=== PATIENT | male | born 1960 | race Caucasian/White ===

== ENCOUNTER → 2017-12-26 | Outpatient (CLI) | payer BC ==
--- NOTE | 2017-12-26 10:48 | XR ---
EXAMINATION TYPE: XR chest 2V DATE OF EXAM: 12/26/2017 COMPARISON: NONE INDICATION: Cough x3 weeks TECHNIQUE: Frontal and lateral views of the chest are obtained. FINDINGS: The heart size is normal. The pulmonary vasculature is normal. The lungs are clear. IMPRESSION: 1. No acute pulmonary process.
== END | disposition home or self-care (01) ==
LOC: RADXRYALE 10:20
PROVIDERS: ATTEND Nurse Practitioner Family
DX: R05 Cough (principal); R53.83 Other fatigue
CPT/HCPCS: 71046

== ENCOUNTER → 2018-02-04 | Outpatient (CLI) | payer BC ==
[2018-02-04 11:02] LABS: C Reactive Protein <5.0 mg/L (<10.0)
--- NOTE | 2018-02-04 13:01 | EST ---
EXERCISE STRESS DATE OF SERVICE: 02/04/2018 AGE: 57 SEX: M HT: 71" WT: 205 PROTOCOL: Jose Alfredo Stress Test STAGE: 4 DURATION OF EXERCISE: 10:00 HEART RATE REST: 65 BLOOD PRESSURE REST: 128/89 MAXIMUM HEART RATE ACHIEVED: 153 MAXIMUM BLOOD PRESSURE: 209/79 85% MPHR: 140 100% MPHR: 165 METS: 10.1 INDICATIONS: Chest discomfort. CLINICAL INFORMATION: STRESS DATA: Pretesting physical examination showed a heart rate of 65, pressure is 128/89 mmHg. Baseline EKG showed sinus mechanism. The patient exercised on the treadmill according to Jose Alfredo protocol for a total of 10 minutes and achieved 10.1 METS with max heart rate was 153, which is about 93% of maximum predicted heart rate. Maximum blood pressure was 209/79 mmHg. Clinically, the patient developed shortness of breath at the peak of the heart rate and the peak of the exercise. The EKG at the peak of the exercise showed about [address]-segment depression. CONCLUSION: 1. Good exercise tolerance. 2. The patient developed shortness of breath at the peak of the exercise. 3. Mildly abnormal EKG in response to exercise. 4. Different kind of stress test is recommended. I would recommend proceeding with a stress test with imaging modality for better clarification. MMODL / IJN: [id number] /
[2018-02-04 16:16] LABS: Rheumatoid Factor 11 IU/mL (0-15)
== END | disposition home or self-care (01) ==
LOC: RADNMMAIN 09:44
PROVIDERS: ATTEND Family Medicine
DX: R06.02 Shortness of breath (principal); I10 Essential (primary) hypertension; E78.5 Hyperlipidemia, unspecified; M25.50 Pain in unspecified joint; R94.31 Abnormal electrocardiogram [ECG] [EKG]; R53.83 Other fatigue; Z82.49 Family history of ischemic heart disease and other diseases of the circulatory system
CPT/HCPCS: 36415; 82306; 84443; 86038; 86140; 86431; 93005; 93017

== ENCOUNTER → 2018-09-10 | Outpatient (CLI) | payer BC ==
--- NOTE | 2018-09-10 14:53 | CONS ---
CONSULTATION DATE OF SERVICE: 09/10/2018 A 58-year-old gentleman who has been evaluated [facility] the [facility] for snoring, awakenings from sleep and tiredness during the day. HISTORY OF PRESENT ILLNESS/SLEEP-WAKE EVALUATION: Patient's usual sleep schedule from 11 p.m. to 6 - 7 a.m. basically 7 days a week. No problem with falling asleep. No TV in bedroom. According to his , he snores. He wakes up from sleep more than 2 times and has 2 episodes of nocturia. 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 [place] Sleepiness Scale is 2. PAST MEDICAL HISTORY: Positive for foramen ovale, hypertension, gout, allergy. PAST SURGICAL HISTORY: Surgery for closing the patent foramen ovale in June 2018, right ankle surgery. MEDICATIONS: Plavix, lisinopril, Colchicine, Singulair, baby aspirin. SOCIAL HISTORY: Positive for smoking for 6 years. Quit 33 years ago. Alcohol consumption rarely. FAMILY HISTORY: Hypertension, arthritis, sinus headaches, snoring, cancer, headaches, thyroid problems. REVIEW OF SYSTEMS: Snoring, awakenings from sleep, feeling tiredness during the day. PHYSICAL EXAM: gentleman without distress, BP 130/76, HR 66, RR 16, height 5 and 10-1/4, weight 210.4, body mass index 29.9, temperature 98.0, oxygen saturation at room air 98%. OROPHARYNX: Moderately low position of soft palate. Restriction of nasal breathing, wide neck 17 inches in circumference. ABDOMEN: Slightly obese. Neck Supple, no JVD. Thyroid is not palpable. LUNGS Clear to percussion and to auscultation. Good air exchange. No wheezing or rhonchi. HEART S1, S2 regular. No murmurs, gallops, or rubs. EXTREMITIES No clubbing or cyanosis. CHAMPION OF SUSTAINABLE DESIGN Awake, alert, and oriented X3. Cranial nerves 2 to 7 intact. There is no fasciculation or atrophy. noted. No focal deficits observed. IMPRESSION: 1. Snoring, awakenings from sleep with nocturia, low position of soft palate, restriction of nasal breathing, wide neck, possible obstructive sleep apnea- hypopnea syndrome. 2. Overweight, borderline to obesity, body mass index 29.9. 3. Hypertension. 4. Status post recent surgery for closing patent foramen ovale. 5. Gout. 6. Hypertension. 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 8. Allergy. 9. Status post right ankle surgery. PLAN: 1. Polysomnography for evaluation of patient's breathing during sleep. 2. CPAP/BiPAP titration if sleep study confirms obstructive sleep apnea-hypopnea syndrome. 3. Preferable position during sleep on the side. 4. No driving if patient feels any sleepiness. 5. I will see patient for follow up visit to explain results of testing and following plan. Thank you very much for referring this patient for consultation. Sincerely, Jeremie Carr MD, PhD, FAASM Diplomat of [place] [employer] [place] [employer] [facility] [place] Jeremie Carr MD, PhD, FAASM Diplomat of [place] [employer] [place] [employer] [facility] [place] MMLANAL / KATIE: [id number] /
== END ==
LOC: SLEEP 13:51
PROVIDERS: ATTEND Internal Medicine
DX: R06.83 Snoring (principal); E66.3 Overweight; I10 Essential (primary) hypertension; M10.9 Gout, unspecified; T78.40XA Allergy, unspecified, initial encounter; Z98.890 Other specified postprocedural states; Z68.29 Body mass index [BMI] 29.0-29.9, adult; Z99.89 Dependence on other enabling machines and devices; Z79.899 Other long term (current) drug therapy; Z79.82 Long term (current) use of aspirin; Z87.891 Personal history of nicotine dependence
CPT/HCPCS: 99211

== ENCOUNTER 2018-09-21 15:12 | Inpatient (IN) | payer BC ==
[2018-09-21 16:18] LABS: Basophils % (A) 0 %; Eosinophils # (A) 0.2 k/uL (0-0.7); Eosinophils % (A) 2 %; HCT 47.9 % (39.0-53.0); HGB 16.1 gm/dL (13.0-17.5); Lymphocytes # (A) 1.9 k/uL (1.0-4.8); Lymphocytes % (A) 26 %; MCH 28.6 pg (25.0-35.0); MCHC 33.6 g/dL (31.0-37.0); MCV 85.2 fL (80.0-100.0); Mean Platelet Volume 6.8; Monocytes # (A) 0.5 k/uL (0-1.0); Monocytes % (A) 6 %; Neutrophils # (A) 4.5 k/uL (1.3-7.7); Neutrophils % (A) 62 %; Platelet Count 279 k/uL (150-450); RBC 5.63 m/uL (4.30-5.90); RDW 12.9 % (11.5-15.5); WBC 7.3 k/uL (3.8-10.6)
[2018-09-21 16:24] LABS: Partial Thromboplastin Time 25.2 sec (22.0-30.0); Prothrombin Time 10.4 sec (9.0-12.0)
[2018-09-21 16:30] LABS: Creatine Kinase 176 U/L (55-170)
[2018-09-21 16:31] LABS: Potassium 3.6 mmol/L (3.5-5.1)
[2018-09-21 16:32] LABS: ALT 36 U/L (21-72); AST 34 U/L (17-59); Albumin 4.3 g/dL (3.5-5.0); Alkaline Phosphatase 70 U/L (38-126); Anion Gap 11 mmol/L; Blood Urea Nitrogen 9 mg/dL (9-20); Calcium 9.1 mg/dL (8.4-10.2); Carbon Dioxide 27 mmol/L (22-30); Chloride 98 mmol/L (98-107); Glucose 145 mg/dL (74-99); Magnesium 1.8 mg/dL (1.6-2.3); Sodium 136 mmol/L (137-145); Total Bilirubin 0.5 mg/dL (0.2-1.3); Total Protein 6.9 g/dL (6.3-8.2)
[2018-09-21 16:43] LABS: Creatine Kinase MB 0.7 ng/mL (0.0-2.4); Troponin I <0.012 ng/mL (0.000-0.034)
--- NOTE | 2018-09-21 16:58 | XR ---
EXAMINATION TYPE: XR chest 2V DATE OF EXAM: 09/21/2018 COMPARISON: Chest x-ray December 26, 2017. HISTORY: Intermittent episodes of dysrhythmia. TECHNIQUE: Frontal and lateral views of the chest are obtained. FINDINGS: Overlying EKG leads are noted on current study. There is no focal air space opacity, pleura l effusion, or pneumothorax seen. The cardiac silhouette size is within normal limits. There is new cardiac closure device seen best on lateral view possibly from ASD repair. The osseous structures ar e intact. IMPRESSION: No acute cardiopulmonary process. Postsurgical change to heart new from prior study.
[2018-09-21] MEDS ORDERED: HEPARIN SODIUM,PORCINE 5,000 UNIT/ML 1 ML VIAL IV ONE (18:17)
[2018-09-21] MEDS ORDERED: HEPARIN SODIUM,PORCINE 5,000 UNIT/ML 1 ML VIAL IV PRN (18:17)
--- NOTE | 2018-09-21 18:18 | ED ---
General Adult HPI <Ryan Bustos - Last Filed: 09/21/18 18:51> - General Source: family, RN notes reviewed, old records reviewed Mode of arrival: ambulatory Limitations: no limitations <Benedicto Sena - Last Filed: 09/21/18 23:38> - General Chief complaint: Arrhythmia/Palpitations Stated complaint: arrhythmia - History of Present Illness Initial comments: 58-year-old male patient past medical history of PFO closure on 07/02 and hypertension presents to ED with heart palpitations. Patient states that the heart palpitations began approximately 2 PM today. Patient states that he has had heart palpitations in the past, has follow-up with route sales delivery drivers supervisor Dr. Barbour but has not had any arrhythmia diagnosed. Patient reports that he had plans to wear a Holter monitor and future. Patient states that he feels as if his heart is irregular currently and at times he felt as if it was beating fast. Patient denies any other symptoms. Patient denies shortness of breath, chest pain, acuity, presyncope, headache, changes in vision, weakness extremities, focal deficit, difficulty with speech, abdominal pain, nausea vomiting diarrhea. Systemic: Pt denies fatigue, myalgia, fever/chills, rash. Pt denies weakness, night sweats, weight loss. Neuro: Pt denies headache, visual disturbances, syncope or pre-syncope. HEENT: Pt denies ocular discharge or irritation, otalgia, rhinorrhea, pharyngitis or notable lymphadenopathy. Cardiopulmonary: Pt denies chest pain, SOB, dyspnea on exertion. Abdominal/GI: Pt denies abdominal pain, n/v/d. : Pt denies dysuria, burning w/ urination, frequency/urgency. Denies new onset urinary or bowel incontinence. MSK: Pt denies myalgia, loss of strength or function in extremities. Neuro: Pt denies new onset weakness, paresthesias. (Benedicto Sena) - Related Data Home Medications Medication Instructions Recorded Confirmed Aspirin [Volo Aspirin EC] 81 mg PO DAILY 09/21/18 09/21/18 Calcium Polycarbophil [Fibercon] 625 mg PO DAILY 09/21/18 09/21/18 Clopidogrel [Plavix] 75 mg PO DAILY 09/21/18 09/21/18 Colchicine 0.6 mg PO DAILY PRN 09/21/18 09/21/18 Lisinopril-Hctz 20-12.5 mg 1 tab PO DAILY 09/21/18 09/21/18 [Zestoretic 20-12.5] Montelukast [Singulair] 10 mg PO HS 09/21/18 09/21/18 Allergies Allergy/AdvReac Type Severity Reaction Status Date / Time naproxen AdvReac Dyspnea Verified 09/21/18 16:36 Review of Systems ROS Other: All systems not noted in ROS Statement are negative. <Ryan Bustos - Last Filed: 09/21/18 18:51> ROS Other: All systems not noted in ROS Statement are negative. <Benedicto Sena - Last Filed: 09/21/18 23:38> ROS Statement: Those systems with pertinent positive or pertinent negative responses have been documented in the HPI. Past Medical History Past Medical History: Hypertension Additional Past Medical History / Comment(s): PFO History of Any Multi-Drug Resistant Organisms: None Reported Past Surgical History: Orthopedic Surgery Past Psychological History: No Psychological Hx Reported Smoking Status: Never smoker Past Alcohol Use History: None Reported Past Drug Use History: None Reported <Benedicto Sena - Last Filed: 09/21/18 23:38> General Exam <Ryan Bustos - Last Filed: 09/21/18 18:51> Limitations: no limitations <Benedicto Sena - Last Filed: 09/21/18 23:38> - General Exam Comments Initial Comments: Constitutional: NAD, AOX3, Pt has pleasant affect. HEENT: NC/AT, trachea midline, neck supple, no lymphadenopathy. Posterior pharynx non erythematous, without exudates. External ears appear normal, without discharge. Mucous membranes moist. Eyes PERRLA, EOM intact. There is no scleral icterus. No pallor noted. Cardiopulmonary: Heart rate irregularly irregular, rate 80bpm during physical exam, no murmurs, rubs or gallops, no JVD noted. Lungs CTAB in anterior and posterior grier. No peripheral edema. Abdominal exam: Abdomen soft and non-distended. Abdomen non-tender to palpation in all 4 quadrants. Bowel sounds active in LLQ. No hepatosplenomegaly. No ecchymosis Neuro: CN II-XII intact. No nuchal rigidity. No focal deficit, no facial droop. MSK: No posterior calf tenderness bilaterally, homans sign negative bilaterally. Posterior tibialis and radial pulse +2 bilaterally. Sensation intact in upper and lower extremities. Full active ROM in upper and lower extremities, 5/5 strength. (Benedicto Sena) Course <Ryan Bustos - Last Filed: 09/21/18 18:51> <Benedicto Sena - Last Filed: 09/21/18 23:38> Vital Signs 09/21/18 09/21/18 09/21/18 15:24 18:50 19:47 Temperature 98.2 F Pulse Rate 142 H 98 103 H Respiratory 18 12 20 Rate Blood Pressure 167/124 153/92 127/78 O2 Sat by Pulse 97 97 98 Oximetry 09/21/18 09/21/18 09/21/18 20:00 21:00 22:00 Temperature Pulse Rate 94 81 83 Respiratory 20 20 20 Rate Blood Pressure 134/97 119/63 100/57 O2 Sat by Pulse 97 98 97 Oximetry 09/21/18 23:00 Temperature Pulse Rate 68 Respiratory 20 Rate Blood Pressure 113/75 O2 Sat by Pulse 98 Oximetry - Reevaluation(s) Reevaluation #1: 09/21/18 18:51 Patient reexamined and reevaluated by myself, Dr. Bustos. Patient is resting comfortably in bed. Heart rate 90. Rhythm is irregular. EKG shows atrial fibrillation which is new for patient. Case was discussed in detail with Dr. Valdes, covering for Dr. Montoya, who will admit. Card ALLERGY will be consult. Patient will be placed on Cardizem to attempt cardioversion pharmaceutically. Patient will also be started on heparin. Patient and are updated on results and plan. I did review and agree with PA findings. This includes all diagnostic interpretations and treatment plan. (Ryan Bustos) Medical Decision Making - Lab Data Result diagrams: 09/21/18 15:53 09/21/18 15:53 <Ryan Bustos - Last Filed: 09/21/18 18:51> - Lab Data Result diagrams: 09/21/18 15:53 09/21/18 15:53 - EKG Data -: EKG Interpreted by Me (and dr bustos ) <Benedicto Sena - Last Filed: 09/21/18 23:38> - Medical Decision Making 58-year-old male patient past medical history of PFO closure on 07/02 and hypertension presents to ED with heart palpitations. Patient states that the heart palpitations began approximately 2 PM today. Patient states that he has had heart palpitations in the past, has follow-up with route sales delivery drivers supervisor Dr. Barbour but has not had any arrhythmia diagnosed. Patient denies any other symptoms. Patient denies shortness of breath, chest pain, acuity, presyncope, headache, changes in vision, weakness extremities, focal deficit, difficulty with speech, abdominal pain, nausea vomiting diarrhea. Physical exam displayed:Heart rate irregularly irregular, rate 80bpm during physical exam, no murmurs, rubs or gallops, no JVD noted. Lungs CTAB in anterior and posterior grier. No peripheral edema. Laboratory investigations revealed CBC, CMP within normal limits. Correlation studies the normal limits. Troponin negative, CK-MB within normal limits. Creatine kinase slightly elevated at 76. TSH within normal limits. Magnesium within normal limits. Glucose slightly elevated 145. EKG displayed atrial fibrillation with rapid ventricular response, ventricular rate 108. Second EKG displayed atrial fibrillation, ventricular rate of 87. Patient started on low intensity heparin, cardizem drip. patient admitted to Dr. Valdes, cardiology consulted. Pt discussed in depth with Dr. Bustos. (Benedicto Sena) - Lab Data Lab Results 09/21/18 09/21/18 09/21/18 Range/Units 15:53 15:53 15:53 WBC 7.3 (3.8-10.6) k/uL RBC 5.63 (4.30-5.90) m/uL Hgb 16.1 (13.0-17.5) gm/dL Hct 47.9 (39.0-53.0) % MCV 85.2 (80.0-100.0) fL MCH 28.6 (25.0-35.0) pg MCHC 33.6 (31.0-37.0) g/dL RDW 12.9 (11.5-15.5) % Plt Count 279 (150-450) k/uL Neutrophils % 62 % Lymphocytes % 26 % Monocytes % 6 % Eosinophils % 2 % Basophils % 0 % Neutrophils # 4.5 (1.3-7.7) k/uL Lymphocytes # 1.9 (1.0-4.8) k/uL Monocytes # 0.5 (0-1.0) k/uL Eosinophils # 0.2 (0-0.7) k/uL Basophils # 0.0 (0-0.2) k/uL PT (9.0-12.0) sec INR (<1.2) APTT (22.0-30.0) sec Sodium 136 L (137-145) mmol/L Potassium 3.6 (3.5-5.1) mmol/L Chloride 98 (98-107) mmol/L Carbon Dioxide 27 (22-30) mmol/L Anion Gap 11 mmol/L BUN 9 (9-20) mg/dL Creatinine 0.87 (0.66-1.25) mg/dL Est GFR (CKD-EPI)AfAm >90 (>60 ml/min/1.73 sqM) Est GFR (CKD-EPI)NonAf >90 (>60 ml/min/1.73 sqM) Glucose 145 H (74-99) mg/dL Calcium 9.1 (8.4-10.2) mg/dL Magnesium 1.8 (1.6-2.3) mg/dL Total Bilirubin 0.5 (0.2-1.3) mg/dL AST 34 (17-59) U/L ALT 36 (21-72) U/L Alkaline Phosphatase 70 (38-126) U/L Total Creatine Kinase 176 H (55-170) U/L CK-MB (CK-2) 0.7 (0.0-2.4) ng/mL CK-MB (CK-2) Rel Index 0.4 Troponin I <0.012 (0.000-0.034) ng/mL Total Protein 6.9 (6.3-8.2) g/dL Albumin 4.3 (3.5-5.0) g/dL TSH 1.300 (0.465-4.680) mIU/L 09/21/18 Range/Units 15:53 WBC (3.8-10.6) k/uL RBC (4.30-5.90) m/uL Hgb (13.0-17.5) gm/dL Hct (39.0-53.0) % MCV (80.0-100.0) fL MCH (25.0-35.0) pg MCHC (31.0-37.0) g/dL RDW (11.5-15.5) % Plt Count (150-450) k/uL Neutrophils % % Lymphocytes % % Monocytes % % Eosinophils % % Basophils % % Neutrophils # (1.3-7.7) k/uL Lymphocytes # (1.0-4.8) k/uL Monocytes # (0-1.0) k/uL Eosinophils # (0-0.7) k/uL Basophils # (0-0.2) k/uL PT 10.4 (9.0-12.0) sec INR 1.0 (<1.2) APTT 25.2 (22.0-30.0) sec Sodium (137-145) mmol/L Potassium (3.5-5.1) mmol/L Chloride (98-107) mmol/L Carbon Dioxide (22-30) mmol/L Anion Gap mmol/L BUN (9-20) mg/dL Creatinine (0.66-1.25) mg/dL Est GFR (CKD-EPI)AfAm (>60 ml/min/1.73 sqM) Est GFR (CKD-EPI)NonAf (>60 ml/min/1.73 sqM) Glucose (74-99) mg/dL Calcium (8.4-10.2) mg/dL Magnesium (1.6-2.3) mg/dL Total Bilirubin (0.2-1.3) mg/dL AST (17-59) U/L ALT (21-72) U/L Alkaline Phosphatase (38-126) U/L Total Creatine Kinase (55-170) U/L CK-MB (CK-2) (0.0-2.4) ng/mL CK-MB (CK-2) Rel Index Troponin I (0.000-0.034) ng/mL Total Protein (6.3-8.2) g/dL Albumin (3.5-5.0) g/dL TSH (0.465-4.680) mIU/L - EKG Data EKG Comments: 1) ventricular 108, QRS was 6, QT/QTC 342/450. Patient fibrillation rapid ventricular response. Nonspecific ST abnormality. Abnormal ECG. 2) ventricular rate 87, QRS 90, QT/QTC 344/413. After fibrillation, abnormal EKG. (Benedicto Sena) Disposition <Bustos,Ryan - Last Filed: 09/21/18 18:51> Is patient prescribed a controlled substance at d/c from ED?: No <Benedicto Sena - Last Filed: 09/21/18 23:38> Clinical Impression: Atrial fibrillation with RVR Disposition: ADMITTED IP TO THIS HOSP Condition: Fair
[2018-09-21] MEDS ORDERED: HEPARIN SOD,PORK IN 0.45% NACL 25,000 UNIT in 0.45% NACL 1 250ML.BAG IV SCH (18:30)
[2018-09-21] MEDS: DILTIAZEM 50 MG in SODIUM CHLORIDE 0.9% 40 ML IV SCH (19:11)
[2018-09-21] MEDS ORDERED: ACETAMINOPHEN TAB 325 MG TAB PO PRN (19:23)
[2018-09-21] MEDS ORDERED: NALOXONE 0.4 MG/ML 1 ML VIAL IV PRN (19:23)
[2018-09-21] MEDS ORDERED: SODIUM CHLORIDE 0.9% 1,000 ML IV SCH (19:30)
[2018-09-22] MEDS ORDERED: COLCHICINE 0.6 MG EACH PO PRN (00:10)
[2018-09-22] MEDS ORDERED: MONTELUKAST 10 MG TAB PO SCH (00:15)
[2018-09-22 08:37] LABS: Basophils # (A) 0.1 k/uL (0-0.2); Basophils % (A) 1 %; Eosinophils # (A) 0.2 k/uL (0-0.7); Eosinophils % (A) 3 %; HCT 47.4 % (39.0-53.0); HGB 16.1 gm/dL (13.0-17.5); Lymphocytes # (A) 1.9 k/uL (1.0-4.8); Lymphocytes % (A) 31 %; MCH 29.4 pg (25.0-35.0); MCHC 33.9 g/dL (31.0-37.0); MCV 86.8 fL (80.0-100.0); Mean Platelet Volume 6.9; Monocytes # (A) 0.4 k/uL (0-1.0); Monocytes % (A) 7 %; Neutrophils # (A) 3.4 k/uL (1.3-7.7); Neutrophils % (A) 56 %; Platelet Count 269 k/uL (150-450); RBC 5.47 m/uL (4.30-5.90); RDW 13.2 % (11.5-15.5); WBC 6.2 k/uL (3.8-10.6)
[2018-09-22] MEDS ORDERED: ASPIRIN 81 MG PO SCH (09:00)
[2018-09-22] MEDS ORDERED: LISINOPRIL-HCTZ 20-12.5 MG 1 EACH TAB PO SCH (09:00)
[2018-09-22] MEDS ORDERED: CALCIUM POLYCARBOPHIL 625 MG TAB PO SCH (09:00)
[2018-09-22] MEDS ORDERED: CLOPIDOGREL 75 MG TAB PO SCH (09:00)
--- NOTE | 2018-09-22 11:05 | CONS ---
CONSULTATION CHIEF COMPLAINT: New onset atrial fibrillation. This is a 58-year-old gentleman with history of PFO status post closure, hypertension, who presented to the hospital with symptoms of palpitations. Patient had been having on and off episodes of palpitations, was supposed to have outpatient workup including event monitor and echocardiogram through his primary instrument repairer steam plant in [place]. As he had sustained palpitations yesterday, he called the instrument repairer steam plant's office, who told him to come to our ER where he was found to be in atrial fibrillation. He was started on IV Cardizem following which he converted to sinus rhythm. His symptoms. His predominant symptom is palpitations at rest on and off, unrelated to exertion was with diaphoresis at the time of my evaluation this morning. He time sinus rhythm and is free of symptoms. PAST MEDICAL HISTORY: Significant for hypertension and PFO status post closure. CURRENT MEDICATIONS: Include Plavix 75 daily, colchicine, Zestoretic, and Singulair. The patient is allergic NAPROXEN. FAMILY HISTORY: Negative for premature coronary artery disease. SOCIAL HISTORY: Negative for smoking, EtOH abuse, or drug abuse. REVIEW OF SYSTEMS: HEENT is unremarkable. CARDIAC: As described above. RESPIRATORY: Negative. GI; Negative. GENITOURINARY: Negative. ALLERGY/IMMUNOLOGY: Negative. MUSCULOSKELETAL: Negative. ENDOCRINE: Negative. DERMATOLOGICAL: Negative. CONSTITUTIONAL: Negative. ONCOLOGICAL: Negative. The rest of the system review is not relevant. PHYSICAL EXAM: Patient is comfortable at rest. Vital signs are stable. There is no jugular venous distention. Carotid upstroke is normal. There is no bruit. Chest exam reveals good air entry bilaterally. Heart exam reveals first and second heart sounds. No gallop. No murmur. No rub. Abdomen is soft, nontender. Exam of extremities did not reveal edema. Peripheral pulses are felt INSTRUCTOR CREELER exam did not reveal focal neurological deficits. LABS: Show a hemoglobin of 16, potassium is 3.6, creatinine is 0.8. Troponin is negative. TSH is normal at 1.3. ASSESSMENT: Paroxysmal atrial fibrillation #2 PFO status post closure. PLAN: I will obtain a 2D echo on him today. The patient is on heparin and if he is covered for novel anticoagulants, we are going to start him on one of those. Will discharge him and arrange outpatient followup with his primary instrument repairer steam plant. MMODL / IJN: [id number] /
[2018-09-22] MEDS: DILTIAZEM 50 MG in SODIUM CHLORIDE 0.9% 40 ML IV SCH (11:34)
[2018-09-22 11:39] VITALS: BP 135/86; RESP 17; TEMP 97.7
--- NOTE | 2018-09-22 12:59 | ECHOF ---
Referral Reason:A fib MEASUREMENTS -------- HEIGHT: 180.3 cm WEIGHT: 90.7 kg BP: 118/78 IVSd: 1.2 cm (0.6 - 1.1) LVIDd: 3.7 cm (3.9 - 5.3) LVPWd: 1.1 cm (0.6 - 1.1) IVSs: 1.3 cm LVIDs: 2.1 cm LVPWs: 1.3 cm LA Diam: 4.1 cm (2.7 - 3.8) LAESV Index (A-L): 31.00 ml/m Ao Diam: 3.0 cm (2.0 - 3.7) AV Cusp: 2.0 cm (1.5 - 2.6) LA Diam: 4.3 cm (2.7 - 3.8) EPSS: 0.8 cm MV E Ant: 0.66 m/s MV DecT: 249 ms MV A Ant: 0.45 m/s MV E/A Ratio: 1.45 RAP: 5.00 mmHg RVSP: 18.03 mmHg MV EF SLOPE: 120.72 mm/s (70 - 150) MV EXCURSION: 1.93 cm (> 18.000) FINDINGS -------- Sinus rhythm. This was a technically adequate study. The left ventricular size is normal. There is mild concentric left ventricular hypertrophy. Overa ll left ventricular systolic function is normal with, an EF between 55 - 60 %. The right ventricle is normal in size and function. LA is midly dilated 29-33ml/m2. The right atrium is normal in size. Contrast study was performed with 2 iv injections of 8 ccs of agitated normal saline, at rest, and po st-Valsalva. Right to left atrial shunt visualized via agitatated saline study with valsalva maneuver. There is an interatrial closure device in place with evidence of shunt documented by bubble study in clip 52. Aortic valve is trileaflet and is mildly thickened. There is no evidence of aortic regurgitation. There is no evidence of aortic stenosis. The mitral valve leaflets are mildly thickened. There is trace to mild mitral regurgitation. Trace tricuspid regurgitation present. Right ventricular systolic pressure is normal at < 35 mmHg. There is no evidence of pulmonary hypertension. Trace/mild (physiologic) pulmonic regurgitation. The aortic root size is normal. Normal inferior vena cava with normal inspiratory collapse consistent with estimated right atrial pre ssure of 5 mmHg. There is no pericardial effusion. CONCLUSIONS -------- 1. Sinus rhythm. 2. This was a technically adequate study. 3. The left ventricular size is normal. 4. There is mild concentric left ventricular hypertrophy. 5. Overall left ventricular systolic function is normal with, an EF between 55 - 60 %. 6. LA is midly dilated 29-33ml/m2. 7. Contrast study was performed with 2 iv injections of 8 ccs of agitated normal saline, at rest, and post-Valsalva. 8. Right to left atrial shunt visualized via agitatated saline study with valsalva maneuver. 9. There is an interatrial closure device in place with evidence of shunt. 10. Aortic valve is trileaflet and is mildly thickened. 11. The mitral valve leaflets are mildly thickened. 12. There is trace to mild mitral regurgitation. 13. Trace tricuspid regurgitation present. 14. Right ventricular systolic pressure is normal at < 35 mmHg. 15. There is no evidence of pulmonary hypertension. 16. Trace/mild (physiologic) pulmonic regurgitation. 17. The aortic root size is normal. 18. There is no pericardial effusion. OSTEOPATHIC NEUROLOGIST: Dixon Silverman RDCS
[2018-09-22] MEDS ORDERED: APIXABAN 5 MG TAB PO SCH ×2 (13:00)
[2018-09-22 15:02] VITALS: PULSE 68
--- NOTE | 2018-09-22 16:09 | HP ---
HISTORY AND PHYSICAL DATE OF ADMISSION: 09/21/2018 DATE OF SERVICE: 09/22/2018 PRESENTING COMPLAINT: Heart racing. HISTORY OF PRESENTING COMPLAINT: This is a very pleasant 58-year-old patient who follows with Dr. Montoya, his family doctor. The patient's respiratory therapy technician is Dr. Wylie. Patient did undergo PFO closure in June 2018 at [facility]. Patient's other chronic stable medical conditions include hypertension and gout, for which he takes colchicine p.r.n. The patient around [facility] had his first episode of palpitations and has had 4 or 5 episodes. The patient does have a Fitbit and heart rate has ranged from 120 to 140s. The patient did see his respiratory therapy technician earlier in the month and was supposed to get his event monitor in the mail, but that never came through. He had an episode yesterday when again he started having his heart racing, felt a bit dizzy, lightheaded, and decided to come in. The patient was found to be in atrial fibrillation with rapid ventricular rate and was put on IV Cardizem. The patient was also started on IV heparin. Patient was then admitted for the same. Cardiology was consulted. Patient's is present. REVIEW OF SYSTEMS: CONSTITUTIONAL: None. HEENT: None. RESPIRATORY: None. CARDIOVASCULAR: As above. GASTROINTESTINAL: None. GENITOURINARY: None. MUSCULOSKELETAL: None. DERMATOLOGICAL: None. HEMATOLOGICAL: None. LYMPHATICS: None. PSYCHIATRY: None. NEUROLOGICAL: None. PAST MEDICAL HISTORY: Hypertension, gout. PAST SURGICAL HISTORY: PFO closure in June 2018 at [facility]. SOCIAL HISTORY: Patient smoked maybe for 6 to 8 years about 35 years ago. Drinks alcohol occasionally. . 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 FAMILY HISTORY: Coronary artery bypass and high blood pressure. HOME MEDICATIONS: 1. Singulair 10 mg at bedtime. 2. Zestoretic 20/12.5 one tablet p.o. daily. 3. Colchicine 0.6 mg daily p.r.n. 4. Plavix 75 mg p.o. daily. 5. FiberCon 625 mg p.o. daily. 6. Aspirin 81 mg p.o. daily. 7. Eliquis 5 mg p.o. b.i.d. ALLERGIES: NAPROXEN. PHYSICAL EXAMINATION: VITAL SIGNS ON PRESENTATION: Temperature 98.2, pulse 142, respiration 18, blood pressure 167/124, pulse ox 97% on room air. Repeat blood pressure was down to 134/97. GENERAL APPEARANCE: Average build, lying in bed, comfortable. EYES: Pupils equal. Conjunctivae normal. HEENT: External appearance of nose and ears normal. Oral cavity normal. NECK: JVD not raised. Mass not palpable. RESPIRATORY: Effort normal. LUNGS: Fair air entry. CARDIOVASCULAR: First and second sounds normal. No edema. ABDOMEN: Soft, non-tender. Liver and spleen not palpable. LYMPHATIC: No lymph node palpable in neck or axillae. PSYCHIATRY: Alert and oriented x3. Mood and affect normal. NEUROLOGICAL: Pupils equal. Cranial nerves grossly intact. Power and sensation grossly intact. INVESTIGATIONS: White count 6.2, hemoglobin 16.1, potassium 3.6. BUN and creatinine are normal. Troponin less than 0.012. TSH is normal. Two-D echo shows ejection fraction of 55% to 60% and shows the closure device in place. EKG tracing personally reviewed by me shows atrial flutter with a rate of 108 initially. Chest x-ray film personally reviewed by me shows lung grier to be cleared. ASSESSMENT: 1. Paroxysmal atrial flutter/fibrillation with a rapid ventricular rate. Patient has had a few episodes of these in the last few weeks. 2. History of patent foramen ovale closure. 3. Essential hypertension. 4. Chronic gout, controlled. 5. IV heparin monitoring. 6. IV Cardizem drip. PLAN: Patient was put on IV Cardizem drip and IV heparin initially. Patient did convert to sinus rhythm. Home medications are resumed. Patient was seen by Cardiology, Dr. Armani Cortes. Patient will be started on Eliquis. Care was discussed with the patient and his . Questions were answered. MMODL / IJN: [id number] /
--- NOTE | 2018-09-23 09:34 | CDI ---
Documentation Clarification Form Date: 09/23/18 From: Corin Brando Trudi Denise, Stud Sheep Farmer Hours-8:30 am & 5 pm M-F Admit Date: 09/21/2018 6:14:00 PM Patient Name: Abhi Castillo Visit Number: [id number] Discharge Date: 09/22/2018 4:18:00 PM ATTENTION: The Clinical Documentation Specialists (CDI) and [facility] Coding Staff appreciate your assistance in clarifying documentation. Please respond to the clarification below the line at the bottom and electronically sign. The CDI & [facility] Coding staff will review the response and follow-up if needed. Please note: Queries are made part of the Legal Health Record. If you have any questions, please contact the author of this message via ITS. Dr. Reuben Cortes Atrial Flutter is documented in the H&P. History/Risk factors: S/P PFO closure, gout, HTN Clinical Indicators: developed fast irregular heart rate EKG/telemetry: atrial flutter with a rate of 108 intially Treatment: IV Cardizem drip and IV Heparin then dc on Eliquis In your professional opinion, in order to capture the severity of condition; can you please clarify the type of Atrial Flutter if known? Typical/Type I Atypical/Type II Other, please specify Unable to determine MTDD
--- NOTE | 2018-09-24 01:18 | DS ---
DISCHARGE SUMMARY DATE OF ADMISSION: September 21, 2018. DATE OF DISCHARGE: September 22, 2018. FINAL DIAGNOSES: 1. Paroxysmal atrial flutter fibrillation rapid ventricular rate, now back in sinus rhythm. 2. History of patent foramen ovale closure. 3. Essential hypertension. 4. Chronic gout, controlled. 5. IV heparin monitoring. HOSPITAL COURSE: This patient had a patent foramen ovale closure in June of 2018 at [facility]. Since then, has had a few episodes of palpitation, symptomatic, presented with a heart rate of 120 to 140s, symptomatic, was initially on IV Cardizem and Eliquis. The patient went back into sinus rhythm, started on Eliquis per Cardiology. I did discuss with Dr. Cortes. The patient's aspirin can be discontinued. He will continue on the Plavix and Eliquis daily. Follows with his director advertising. I did discuss with him starting on a beta randall, which he is going to discuss with his director advertising that he is going to see in the next 2 days. The patient did have a 2-D echocardiogram showed EF of 55-60 percent. There was [id number] atrial shunt visualized via agitated saline study with Valsalva maneuver and intra-atrial closure device in place with evidence of shunt. PHYSICAL EXAMINATION: Temperature 97, pulse 64, respiration 17, blood pressure 132/86. CARDIOVASCULAR: Heart sounds irregular. LABS: TSH is normal. Troponin negative. CONSULTATION: Dr. Armani Cortes from Cardiology. DISCHARGE MEDICATIONS: 1. FiberCon 625 mg p.o. daily. 2. Plavix 75 mg p.o. daily. 3. Colchicine 0.6 mg p.o. daily p.r.n. 4. Zestoretic 03/09.5 one tab p.o. daily. 5. Singulair 10 mg q.h.s. 6. Eliquis 5 mg p.o. b.i.d. 7. Aspirin discontinued. FOLLOWUP: Follow up with Dr. Montoya in 1 week. Follow up with Dr. Wylie on September 24, 2018. Copy to Dr. Montoya. MMLANAL / RESHMAN: [id number] /
--- NOTE | 2018-09-24 07:22 | CDI ---
Documentation Clarification Form Date: 09/24/2018 From: Corin Brando Trudi Denise, Fire Alarm Dispatcher Hours-8:30 am & 5 pm M-F Admit Date: 09/21/2018 6:14:00 PM Patient Name: Abhi Castillo Visit Number: [id number] Discharge Date: 09/22/2018 4:18:00 PM ATTENTION: The Clinical Documentation Specialists (CDI) and [facility] Coding Staff appreciate your assistance in clarifying documentation. Please respond to the clarification below the line at the bottom and electronically sign. The CDI & [facility] Coding staff will review the response and follow-up if needed. Please note: Queries are made part of the Legal Health Record. If you have any questions, please contact the author of this message via ITS. Dr. Reuben Cortes Atrial Flutter is documented in the H&P. History/Risk factors: S/P PFO closure, gout, HTN Clinical Indicators: developed fast irregular heart rate EKG/telemetry: atrial flutter with a rate of 108 intially Treatment: IV Cardizem drip and IV Heparin then dc on Eliquis In your professional opinion, in order to capture the severity of condition; can you please clarify the type of Atrial Flutter if known? Typical/Type I Atypical/Type II Other, please specify Unable to determine atypical type 2 MTDD
== END 2018-09-22 16:18 | disposition home or self-care (01) | DRG 310 ==
LOC: EC 15:12 → 3SCARD 18:14
PROVIDERS: ADMIT Hospitalist; ATTEND Hospitalist
DX: I48.0 Paroxysmal atrial fibrillation (principal); I10 Essential (primary) hypertension; I48.4 Atypical atrial flutter; M1A.9XX0 Chronic gout, unspecified, without tophus (tophi); Z79.82 Long term (current) use of aspirin; Z79.02 Long term (current) use of antithrombotics/antiplatelets; Z79.899 Other long term (current) drug therapy; Z87.74 Personal history of (corrected) congenital malformations of heart and circulatory system; Z87.891 Personal history of nicotine dependence; Z88.8 Allergy status to other drugs, medicaments and biological substances
CPT/HCPCS: 36415; 71046; 80053; 82550; 82553; 83735; 84443; 84484; 85025; 85610; 85730; 93005; 93306; 96365; 96366; 96368; 96376; 99285

== ENCOUNTER → 2018-10-26 | Outpatient (CLI) | payer BC ==
--- NOTE | 2018-10-26 14:29 | CT ---
EXAMINATION TYPE: CT sinus wo con DATE OF EXAM: 10/26/2018 COMPARISON: None HISTORY: sinusitis CT DLP: 662.[address] of the paranasal sinuses was performed in the axial and coronal planes. Bone and soft tissue settings are submitted. The paranasal sinuses demonstrate normal aeration and development. Minimal mucosal thickening right maxillary sinus. The remaining paranasal sinuses are well-aerated. The osteal meatal units are patent bilaterally. Mild nasal septal deviation from left to right. No bony destructive changes are seen within the field of view. IMPRESSION: Minimal chronic sinusitis. Nasal septal deviation as noted.
== END | disposition home or self-care (01) ==
LOC: RADCTMAIN 13:12
DX: J32.9 Chronic sinusitis, unspecified (principal); J34.2 Deviated nasal septum
CPT/HCPCS: 70486

== ENCOUNTER → 2018-12-31 | Outpatient (CLI) | payer BC ==
--- NOTE | 2018-12-31 12:53 | SFUN ---
SLEEP CENTER FOLLOW UP NOTE DATE OF SERVICE: 12/31/2018 This is a 58-year-old gentleman had been followed in sleep center for treatment of obstructive sleep apnea-hypopnea syndrome. Recently patient had a polysomnogram which showed moderate close to severe obstructive sleep apnea. Then patient had CPAP titration. He received CPAP unit. Today is his first visit on treatment with CPAP. I checked reading from his machine. Usage is a 27/30 days more than 4 hours. Average usage is 6 hours 30 minutes. Set of pressure 5 to 10 cm of water. Most of the time, maximum pressure is 9.1. Apnea hypopnea index reading is 3.8, which is in normal range. [place] Sleepiness Scale today is 4. MEDICATIONS: Plavix, lisinopril, Colchicine, Singulair. PHYSICAL EXAMINATION: During physical exam, patient in no distress. VITAL SIGNS: BP 151/75, HR 71, RR 17, height 5 feet 10 inches, weight 207.6 pounds, body mass index 29.7, temperature 97.6, oxygen saturation on room air 96% HEENT: PERRLA, EOMI. Oropharynx moderately low position of soft palate NECK: Supple, no JVD. Thyroid is not palpable. LUNGS: Clear to percussion and to auscultation. Good air exchange. No wheezing or rhonchi. HEART: S1, S2 regular. No murmurs, gallops, or rubs. ABDOMEN: Soft and nontender. Bowel sounds are present. No organomegaly appreciated. EXTREMITIES: No clubbing or cyanosis. MICROBIOLOGICAL LAB TECHNICIAN: Awake, alert, and oriented X3. Cranial nerves 2 to 7 intact. There is no fasciculation or atrophy. noted. No focal deficits observed. IMPRESSION: 1. Moderate close to severe obstructive sleep apnea-hypopnea syndrome. Apnea-hypopnea index 27.2 on control with auto PAP most of the time range of pressure 9.1 cm of water. Patient demonstrated good compliance with treatment. 2. Overweight. 3. Hypertension. 4. Status post recent surgery for closing of patent foramen ovale. 5. Gout. 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 7. Allergy. 8. Status post right ankle surgery. PLAN: 1. Patient will continue to use CPAP equipment every night. 2. Maintain all necessary prescriptions for CPAP supplies. 3. Sleep hygiene with regular time in bed for 7-1/2 to 8 hours. 4. No driving if feeling any sleepiness. Thank you very much for allowing me to participate in management of your patient. Sincerely, Jeremie Carr MD, PhD, FAASM Diplomat of [employer] Process Control Operator of [facility] [place] MMASIA / KATIE: [id number] /
== END ==
LOC: SLEEP 10:26
PROVIDERS: ATTEND Internal Medicine
DX: G47.33 Obstructive sleep apnea (adult) (pediatric) (principal); E66.3 Overweight; I10 Essential (primary) hypertension; M10.9 Gout, unspecified; T78.40XA Allergy, unspecified, initial encounter; Z68.29 Body mass index [BMI] 29.0-29.9, adult; Z99.89 Dependence on other enabling machines and devices; Z98.890 Other specified postprocedural states; Z79.899 Other long term (current) drug therapy

== ENCOUNTER → 2019-02-10 | Outpatient (CLI) | payer BC ==
--- NOTE | 2019-02-10 10:54 | CT ---
EXAMINATION TYPE: CT brain wo/w con DATE OF EXAM: 02/10/2019 COMPARISON: None INDICATION: fatigue for 14 months DLP: 1999.6 mGycm, Automated exposure control for dose reduction was used. CONTRAST: Studies performed without and with intravenous contrast. [address] of the brain is performed utilizing 3 mm thick sections through the posterior fossa and 3 mm thick sections through the remaining calvarium. Study is performed within 24 hours of arrival to the hosp ital. No abnormal hyperdensity is present to suggest an acute intracranial hemorrhage. No mass lesion is evident. No acute infarcts are evident. Ventricles and sulci are appropriate for the patient age. Paranasal sinuses and mastoid air cells within the [id number] are clear. No suspicious enhancement is evident. IMPRESSIONS: 1. Normal pre and postcontrast CT brain
== END | disposition home or self-care (01) ==
LOC: RADCTMAIN 09:00
PROVIDERS: ATTEND Nurse Practitioner Family
DX: J32.1 Chronic frontal sinusitis (principal); R26.89 Other abnormalities of gait and mobility; R41.840 Attention and concentration deficit; Z86.79 Personal history of other diseases of the circulatory system
CPT/HCPCS: 70470; Q9967

== ENCOUNTER → 2020-06-06 | Day surgery (SDC) | payer BC ==
[2020-06-02 15:34] VITALS: BMI 28.4
[~2020-06-06] MED LIST: ACETAMINOPHEN TAB 500 MG TAB PO ONE; ATROPINE SULFATE 0.4 MG/ML 1 ML VIAL ONE; DEXAMETHASONE SOD PHOSPHATE 10 MG/ML 1 ML VIAL IV ONE; HEPARIN SODIUM,PORCINE 5,000 UNIT/ML 1 ML VIAL SQ ONE; HYDROmorphone 0.5 MG/0.5 ML SYRINGE IVP PRN; KETOROLAC 15 MG/ML 1 ML VIAL IVP ONE; KETOROLAC 15 MG/ML 1 ML VIAL ONE; LACTATED RINGERS 1,000 ML IV SCH; LIDOCAINE 1% (10MG/ML) FOR IV START INTRADERMA PRN; LIDOCAINE 1% INJ 10MG/ML (20 ML MDV) ONE; LIDOCAINE 1%-EPI 1:100,000 20 ML VIAL SQ ONE; MIDAZOLAM 2 MG/2 ML VIAL IV PRN; MIDAZOLAM 2 MG/2 ML VIAL ONE; ONDANSETRON 4 MG/2 ML VIAL IVP ONE; PROPOFOL 10 MG/ML 20 ML VIAL IV ONE; Pre Op ABX Message 1 EACH MISC MISCELLANE ONE; SODIUM CHLORIDE 0.9% 50 ML with ceFAZolin 1,000 MG IV ONE; ePHEDrine SULFATE/0.9% NACL/PF 50 MG/5 ML SYRINGE IV ONE; fentaNYL (PF) 50 MCG/ML 2 ML AMP IVP PRN; fentaNYL (PF) 50 MCG/ML 2 ML AMP ONE
--- NOTE | 2020-06-06 08:26 | P.GSHP ---
History of Present Illness H&P Date: 06/06/20 Chief Complaint: Left chest wall lipoma This a 60-year-old male who presents today for excision of left chest wall lipoma. Patient has a 10 cm lipoma located on his left lateral chest. Past Medical History Past Medical History: Atrial Fibrillation, Hypertension Additional Past Medical History / Comment(s): lipoma left chest,medrol pack and steroid injection April History of Any Multi-Drug Resistant Organisms: None Reported Past Surgical History: Orthopedic Surgery Additional Past Surgical History / Comment(s): PFO closure -July 13, 2018 Past Anesthesia/Blood Transfusion Reactions: No Reported Reaction Additional Past Anesthesia/Blood Transfusion Reaction / Comment(s): no hx blood transfusion Smoking Status: Former smoker - Past Family History Mother Family Medical History: Hypertension Father Additional Family Medical History / Comment(s): CABG- 3 vessel Medications and Allergies Home Medications Medication Instructions Recorded Confirmed Type Clopidogrel [Plavix] 75 mg PO DAILY 09/21/18 06/02/20 History Colchicine 0.6 mg PO DAILY PRN 09/21/18 06/02/20 History Montelukast [Singulair] 10 mg PO HS 09/21/18 06/02/20 History calcium polycarbophiL [Fibercon] 625 mg PO DAILY 09/21/18 06/02/20 History Metoprolol Tartrate [Lopressor] 12.5 mg PO BID 06/02/20 06/02/20 History Sertraline [Zoloft] 25 mg PO HS 06/02/20 06/02/20 History lisinopriL 20 mg PO QAM 06/02/20 06/02/20 History Allergies Allergy/AdvReac Type Severity Reaction Status Date / Time naproxen Allergy Dyspnea Verified 06/02/20 15:24 Surgical - Exam Vital Signs Temp Pulse Resp BP Pulse Ox 97.5 F L 54 L 16 144/79 97 06/06/20 07:15 06/06/20 07:15 06/06/20 07:15 06/06/20 07:15 06/06/20 07:15 - General well developed, well nourished, no distress - Eyes PERRL - ENT normal pinna - Neck no masses - Respiratory normal expansion - Cardiovascular Rhythm: regular - Abdomen Abdomen: soft, non tender - Integumentary 10 cm lipoma located on left lateral chest Assessment and Plan Assessment: Left chest wall lipoma. We'll perform excision.
--- NOTE | 2020-06-06 08:28 | P.OP ---
Date of Procedure: 06/06/20 Preoperative Diagnosis: Left chest wall lipoma Postoperative Diagnosis: Left chest wall lipoma Procedure(s) Performed: Excision of left chest wall lipoma Anesthesia: SARITA LANDERS Surgeon: Tee Watson Estimated Blood Loss (ml): 10 Pathology: other (Left chest wall lipoma) Condition: stable Disposition: PACU Description of Procedure: The patient's placed on the operative table in supine position. He received Chelo. His left chest was prepped and draped usual fashion. The skin incised over the lipoma. Using blunt and sharp dissection with cautery the lipoma was dissected free. The lipoma measured roughly 10 x 10 x 5 cm. The Bovie using for hemostasis. The deep layers closed 3-0 Vicryl. Skin was closed interrupted 3-0 Monocryl suture. Dermabond was applied. Patient tolerated the procedure well will was sent to recovery in stable condition.
[2020-06-06 08:34] VITALS: TEMP 98
[2020-06-06 08:53] VITALS: RESP 18
[2020-06-06] MEDS: LABETALOL SYRINGE 5 MG/ML IVP ONE ×2 (08:53→09:04)
[2020-06-06 10:04] VITALS: BP 138/77; PULSE 66
== END | disposition home or self-care (01) ==
LOC: OR 06:28
PROVIDERS: ATTEND Surgery
DX: D17.1 Benign lipomatous neoplasm of skin and subcutaneous tissue of trunk (principal); I48.91 Unspecified atrial fibrillation; I10 Essential (primary) hypertension; G47.33 Obstructive sleep apnea (adult) (pediatric); E07.9 Disorder of thyroid, unspecified; F32.9 Major depressive disorder, single episode, unspecified; Z98.890 Other specified postprocedural states; Z87.74 Personal history of (corrected) congenital malformations of heart and circulatory system; Z87.891 Personal history of nicotine dependence; Z79.02 Long term (current) use of antithrombotics/antiplatelets; Z79.899 Other long term (current) drug therapy; Z88.6 Allergy status to analgesic agent; Z87.81 Personal history of (healed) traumatic fracture; Z82.49 Family history of ischemic heart disease and other diseases of the circulatory system
CPT/HCPCS: 88304; 11406; J2250; J0461; J1644; J1100; J2405; J0690; J2001; J3010; J1885; J2704; J1170

== ENCOUNTER 2020-06-22 07:44 | Day surgery (SDC) | payer BC ==
[~2020-06-22 07:44] MED LIST changes: -ACETAMINOPHEN TAB 500 MG TAB PO ONE; -ATROPINE SULFATE 0.4 MG/ML 1 ML VIAL ONE; -DEXAMETHASONE SOD PHOSPHATE 10 MG/ML 1 ML VIAL IV ONE; -HEPARIN SODIUM,PORCINE 5,000 UNIT/ML 1 ML VIAL SQ ONE; -HYDROmorphone 0.5 MG/0.5 ML SYRINGE IVP PRN; -KETOROLAC 15 MG/ML 1 ML VIAL IVP ONE; -KETOROLAC 15 MG/ML 1 ML VIAL ONE; -LIDOCAINE 1% INJ 10MG/ML (20 ML MDV) ONE; -LIDOCAINE 1%-EPI 1:100,000 20 ML VIAL SQ ONE; -MIDAZOLAM 2 MG/2 ML VIAL IV PRN; -MIDAZOLAM 2 MG/2 ML VIAL ONE; -ONDANSETRON 4 MG/2 ML VIAL IVP ONE; -PROPOFOL 10 MG/ML 20 ML VIAL IV ONE; -Pre Op ABX Message 1 EACH MISC MISCELLANE ONE; -SODIUM CHLORIDE 0.9% 50 ML with ceFAZolin 1,000 MG IV ONE; -ePHEDrine SULFATE/0.9% NACL/PF 50 MG/5 ML SYRINGE IV ONE; -fentaNYL (PF) 50 MCG/ML 2 ML AMP IVP PRN; -fentaNYL (PF) 50 MCG/ML 2 ML AMP ONE
[2020-06-22 07:58] VITALS: TEMP 97.2
[2020-06-22] MEDS ORDERED: PROPOFOL 10 MG/ML 20 ML VIAL IV ONE (08:09)
--- NOTE | 2020-06-22 08:10 | P.GSHP ---
History of Present Illness H&P Date: 06/22/20 Chief Complaint: Screening colonoscopy This a 52-year-old male presents today for screening colonoscopy. Patient denies any significant GI complaints. Past Medical History Past Medical History: Atrial Fibrillation, Hypertension Additional Past Medical History / Comment(s): lipoma left chest,medrol pack and steroid injection April History of Any Multi-Drug Resistant Organisms: None Reported Past Surgical History: Orthopedic Surgery Additional Past Surgical History / Comment(s): ORIF AND REMOVAL RIGHT ANKLE PFO -July 13, 2018 Past Anesthesia/Blood Transfusion Reactions: No Reported Reaction Additional Past Anesthesia/Blood Transfusion Reaction / Comment(s): no hx blood transfusion Past Psychological History: No Psychological Hx Reported Smoking Status: Former smoker Past Alcohol Use History: Rare Additional Past Alcohol Use History / Comment(s): hx 1 pack/day. Quit 35 Years ago. Past Drug Use History: None Reported - Past Family History Mother Family Medical History: Hypertension Father Additional Family Medical History / Comment(s): CABG- 3 vessel Medications and Allergies Home Medications Medication Instructions Recorded Confirmed Type Clopidogrel [Plavix] 75 mg PO DAILY 09/21/18 06/22/20 History Colchicine 0.6 mg PO DAILY PRN 09/21/18 06/22/20 History Montelukast [Singulair] 10 mg PO HS 09/21/18 06/22/20 History calcium polycarbophiL [Fibercon] 625 mg PO DAILY 09/21/18 06/22/20 History Metoprolol Tartrate [Lopressor] 12.5 mg PO BID 06/02/20 06/22/20 History Sertraline [Zoloft] 25 mg PO HS 06/02/20 06/22/20 History lisinopriL 20 mg PO QAM 06/02/20 06/22/20 History Allergies Allergy/AdvReac Type Severity Reaction Status Date / Time naproxen Allergy Dyspnea Verified 06/22/20 07:54 Surgical - Exam Vital Signs Temp Pulse Resp BP Pulse Ox 97.2 F L 59 L 16 135/83 97 06/22/20 07:56 06/22/20 07:56 06/22/20 07:56 06/22/20 07:56 06/22/20 07:56 - General well developed, well nourished, no distress - ENT normal pinna - Neck no masses - Respiratory normal expansion - Cardiovascular Rhythm: regular - Abdomen Abdomen: soft, non tender Assessment and Plan Assessment: We'll perform screening colonoscopy.
--- NOTE | 2020-06-22 08:21 | P.OP ---
Date of Procedure: 06/22/20 Preoperative Diagnosis: Screening colonoscopy Postoperative Diagnosis: Diverticulosis Procedure(s) Performed: Colonoscopy Anesthesia: MAC Surgeon: Tee Watson Pathology: none sent Condition: stable Disposition: PACU Description of Procedure: The patient's placed on the endoscopy table in the lateral position. He received IV sedation. Digital rectal exam was performed which revealed no abnormalities. The flexible colonoscope was then placed patient anus passed throughout the entire colon. The ileocecal valve was visually's. The cecum, ascending and transverse colon appeared normal. In the descending and sigmoid colon there is mild diverticular changes. The scope summer back the rectum and this appeared normal. Scope was withdrawn for patient.
[2020-06-22 09:07] VITALS: BP 113/67; PULSE 53; RESP 16
== END 2020-06-22 09:08 | disposition home or self-care (01) ==
LOC: ORWHC2ENDO 07:44
PROVIDERS: ATTEND Surgery
DX: Z12.11 Encounter for screening for malignant neoplasm of colon (principal); K57.30 Diverticulosis of large intestine without perforation or abscess without bleeding; I10 Essential (primary) hypertension; I48.91 Unspecified atrial fibrillation; D17.1 Benign lipomatous neoplasm of skin and subcutaneous tissue of trunk; F32.9 Major depressive disorder, single episode, unspecified; Z87.891 Personal history of nicotine dependence; Z82.49 Family history of ischemic heart disease and other diseases of the circulatory system; Z98.890 Other specified postprocedural states; Z79.02 Long term (current) use of antithrombotics/antiplatelets; Z79.899 Other long term (current) drug therapy; Z88.6 Allergy status to analgesic agent
CPT/HCPCS: J2704; G0121

== ENCOUNTER → 2021-04-26 | Outpatient (CLI) | payer BC ==
--- NOTE | 2021-04-26 13:12 | MR ---
EXAMINATION TYPE: MR shoulder LT wo con DATE OF EXAM: 04/26/2021 COMPARISON: Outside radiograph 04/12/2021 HISTORY: 60-year-old male Pain in Left Shoulder x6 months TECHNIQUE: Multiplanar, multisequence imaging of the left shoulder is performed without contrast. FINDINGS: There is some intermediate signal within the intracapsular portion of the long head biceps tendon sug gesting tendinosis. The extracapsular portion remains appropriately situated along the bicipital groo ve. There is mild tenosynovial fluid. Heterogeneous signal within the subscapularis tendon. The tendon remains intact. Mild to moderate degenerative joint space narrowing and marginal spurring at the acromioclavicular jeremy int. There is diffuse heterogeneity of both supraspinatus and infraspinatus tendons. Prominent bursal side d fraying throughout the supraspinatus tendon. Additional articular sided fraying of the anterior to mid supraspinatus tendon. There is an intrasubstance tear measuring 7 mm long and 1.1 cm AP at the mid supraspinatus tendon ashley tprint that may have small articular surface sided communication. No full-thickness tear is identified. No atrophy of the rotator cuff musculature. There is trace effusion within the subacromial/subdeltoid bursa. The glenohumeral joint is intact. No discrete labral tear given nonarthrographic technique. No parala bral cyst. No Hill-Sachs deformity or os acromiale. No suspicious bone marrow replacement. IMPRESSION: 1. Diffuse rotator cuff tendinosis. There is bursal sided fraying of the supraspinatus tendon. Additi onal articular sided fraying of the anterior to mid supraspinatus tendon. 2. There is an intrasubstance tear of the mid supraspinatus tendon footprint measuring 7 mm long and 1.1 cm AP. Possible small articular sided communication of the tear. No full-thickness tear. 3. Trace effusion within the subacromial/subdeltoid bursa. Mild AC joint OA.
== END | disposition home or self-care (01) ==
LOC: RADMRIMAIN 11:11
PROVIDERS: ATTEND Orthopaedic Surgery
DX: S46.012A Strain of muscle(s) and tendon(s) of the rotator cuff of left shoulder, initial encounter (principal); M19.012 Primary osteoarthritis, left shoulder; M25.412 Effusion, left shoulder; X58.XXXA Exposure to other specified factors, initial encounter

== ENCOUNTER → 2021-05-30 | Outpatient (CLI) | payer BC ==
--- NOTE | 2021-05-30 15:28 | XR ---
EXAMINATION TYPE: XR chest 2V DATE OF EXAM: 05/30/2021 COMPARISON: Chest x-ray September 21, 2018 HISTORY: Chronic cough. Wheeze. TECHNIQUE: Frontal and lateral views of the chest are obtained. FINDINGS: There is mild chronic changes without suspicious focal air space opacity, pleural effusion , or pneumothorax seen. The cardiac silhouette size is stable and within normal limits. Atrial sept al closure device redemonstrated. The osseous structures are intact. IMPRESSION: Chronic changes without acute pulmonary process. No significant change from prior.
== END | disposition home or self-care (01) ==
LOC: RADXRYALE 15:05
PROVIDERS: ATTEND Nurse Practitioner Family
DX: R05 Cough (principal); R06.2 Wheezing
CPT/HCPCS: 71046

== ENCOUNTER → 2021-08-13 | Outpatient (CLI) | payer BC ==
[2021-08-13 14:20] LABS: Basophils # (A) 0.04 X 10*3/uL (0.00-0.10); Basophils % (A) 0.6 %; Eosinophils # (A) 0.29 X 10*3/uL (0.04-0.35); Eosinophils % (A) 4.3 %; HCT 46.1 % (39.6-50.0); Lymphocytes # (A) 2.13 X 10*3/uL (0.90-5.00); Lymphocytes % (A) 31.9 %; MCH 29.1 pg (27.0-32.0); MCHC 32.5 g/dL (32.0-37.0); MCV 89.5 fL (80.0-97.0); Monocytes # (A) 0.67 X 10*3/uL (0.20-1.00); Neutrophils # (A) 3.52 X 10*3/uL (1.80-7.70); Neutrophils % (A) 52.9 %; Platelet Count 291 X 10*3/uL (140-440); RBC 5.15 X 10*6/uL (4.40-5.60); WBC 6.67 X 10*3/uL (4.50-10.00)
[2021-08-13 14:39] LABS: Anion Gap 11.5 mmol/L (10.00-18.00); BUN/Creat Ratio 15.56 Ratio (12.00-20.00); Calcium 8.8 mg/dL (8.7-10.3); Carbon Dioxide 25.5 mmol/L (20.0-27.5); Non-African American GFR(CKD) 93.2 (60.0-200.0); Potassium 4.5 mmol/L (3.5-5.5)
[2021-08-13 14:56] LABS: INR 0.96 (0.90-1.11); Prothrombin Time 10.9 sec (9.9-11.9)
== END | disposition home or self-care (01) ==
LOC: LABWHC1 08:29
PROVIDERS: ATTEND Nurse Practitioner Family
DX: Z01.812 Encounter for preprocedural laboratory examination (principal); I10 Essential (primary) hypertension
CPT/HCPCS: 36415; 80048; 85025; 85610

== ENCOUNTER 2021-08-24 05:59 | Day surgery (SDC) | payer BC ==
[2021-08-23 08:19] VITALS: BMI 28.5
--- NOTE | 2021-08-23 09:25 | HP ---
HISTORY AND PHYSICAL CHIEF COMPLAINT: Left shoulder pain. 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 He is having pain with overhead use and at night. He notes it significantly limits him. He has tried medications in addition to therapy with only partial temporary relief. PAST MEDICAL HISTORY: Significant for hypertension and atrial fibrillation. PAST SURGICAL HISTORY: Significant for right ankle surgery, previous foramina ovale closure procedure. CURRENT MEDICATIONS: Colchicine, lisinopril, Plavix, sertraline, Toprol, and Tylenol. ALLERGIES: HE HAS ALLERGIES TO NAPROSYN. FAMILY HISTORY: Negative. SOCIAL HISTORY: Negative for current tobacco or alcohol use. REVIEW OF SYSTEMS: Sixteen-point review of systems is otherwise reviewed and noncontributory. PHYSICAL EXAMINATION: On examination, patient is approximately 5 foot 11, 195 pounds of endomorphic habitus. HEENT exam is nonfocal. Neck is supple. On examination of his left shoulder, he is tender about the anterior subacromial space. He has mild crepitus. Active range of motion forward elevation 165 degrees, external rotation with arm to side 70 degrees, internal rotation to T11. Motor strength 5 minus over 5 for abduction and external rotation. Impingement test, Neer, and Speed test are positive. His distal neurovascular exam appears intact in the left upper extremity. MRI report left shoulder from 04/26/2021 shows tendinosis of the rotator cuff with possible partial-thickness tear in addition to the bicipital tendinosis. IMPRESSION: 1. Left shoulder impingement with rotator cuff tendinitis/possible partial-thickness rotator cuff tear. 2. Left proximal bicipital tendinosis. 3. History of heart disease, on anticoagulation. RECOMMENDATIONS: I talked to the patient at length regarding his condition along with treatment options. At this point, he remains quite symptomatic despite extensive conservative measures. After thorough discussion, he opts to proceed with surgery. We will plan to proceed with arthroscopic evaluation, probable subacromial decompression, rotator cuff repair versus debridement, possible biceps tenotomy. We will likely perform that as an outpatient procedure. Risks and benefits were discussed at length in layman's terms. MMODL / IJN: [id number] /
[~2021-08-24 05:59] MED LIST changes: +DEXAMETHASONE SOD PHOSPHATE 4 MG/ML 1 ML VIAL IV ONE; -LIDOCAINE 1% (10MG/ML) FOR IV START INTRADERMA PRN; +MIDAZOLAM 2 MG/2 ML VIAL IV PRN; +ONDANSETRON 4 MG/2 ML VIAL IVP ONE; +SCOPOLAMINE 1.5MG/72HR PATCH TRANSDERM ONE
[2021-08-24] MEDS ORDERED: HYDROmorphone 0.5 MG/0.5 ML SYRINGE IVP PRN (07:00)
[2021-08-24] MEDS ORDERED: fentaNYL (PF) 50 MCG/ML 5 ML AMP IVP ONE (07:01)
[2021-08-24] MEDS ORDERED: MIDAZOLAM 2 MG/2 ML VIAL IVP ONE (07:01)
[2021-08-24] MEDS ORDERED: PROPOFOL 10 MG/ML 20 ML VIAL IV ONE (07:40)
[2021-08-24] MEDS ORDERED: .fentaNYL (PF) 50 MCG/ML 2 ML AMP ONE (07:40)
[2021-08-24] MEDS ORDERED: LIDOCAINE 1% INJ 10MG/ML (20 ML MDV) ONE (07:40)
[2021-08-24] MEDS ORDERED: SUCCINYLCHOLINE CHLORIDE 100 MG/5 ML SYR IV ONE (07:40)
[2021-08-24] MEDS ORDERED: ePHEDrine 50 MG/ML 1 ML AMP ONE (07:40)
[2021-08-24] MEDS ORDERED: ROPIVACAINE 5 MG/ML 30 ML VIAL ONE (07:40)
[2021-08-24] MEDS ORDERED: EPINEPHrine (PF) 1 ML in SODIUM CHLORIDE 0.9% IRRIGATIO 3,000 ML IRRIGATION ONE ×8 (07:50)
--- NOTE | 2021-08-24 09:22 | P.OP ---
Date of Procedure: 08/24/21 Preoperative Diagnosis: Left shoulder impingement with possible rotator cuff tear Postoperative Diagnosis: Left 3 cm rotator cuff tear, type I superior labral tear Procedure(s) Performed: Left shoulder arthroscopic subacromial decompression/rotator cuff re pair/superior labral debridement Implants: Arthrex 4.75 mm swivel lock anchor 2, 5.5 mm swivel lock anchor 2 Anest[facility]: [facility], regional Surgeon: Benedicto Foley [employer]key Engine Firer/Fireman #1: Marck Bee Estimated Blood Loss (ml): 10 Pathology: none sent Condition: stable Disposition: PACU Indications for Procedure: The patient's a 61-year-old male who presents with progressive left shoulder pain and weakness spite previous conservative measures. A discussion of the risks and benefits of operative intervention versus continued conservative measures was made with patient. He opted to proceed with surgery. Operative risks to include infection, neurovascular injury, development of blood clots, possible tendon rerupture, possible postoperative stiffness and need for subsequent procedures was discussed. Informed consent was obtained. Operative Findings: As below Description of Procedure: The patient was brought to the operating room, and after induction of general anesthesia was placed in a beachchair position. A preoperative interscalene block was placed for postoperative analgesia. I examined the left shoulder. There was no gross block to passive motion or gross glenohumeral instability. The left upper extremity was prepped and draped in normal fashion. The bony outlines the acromion, distal clavicle, and coracoid process were outlined with a skin marker. The glenohumeral joint was inflated with 50 mL of saline utilizing a spinal needle from posterior approach. A posterior portal was made through a 5 mm skin incision 1 cm medial and inferior to the posterior lateral border time. A blunt trocar was used to easily into the joint. Diagnostic arthroscopy was performed. An anterior portal was made just lateral to the coracoid process entering the joint above the subscapularis tendon. The subscapularis tendon appeared to be intact. Anterior labrum was intact. The inferior recess was inspected. The posterior labrum was intact. On inspection of the biceps, it was intact however there was a type I tear involving the superior labrum. This was debrided back to stable base with a motorized shaver. The remaining anchor was intact and stable. On inspection the rotator cuff, the full-thickness tear involving the anterior aspect the supraspinatus was noted. The arthroscope was then placed into the subacromial space. A lateral portal was made 2 centimeters inferior to the anterior lateral border of the acromion. The rotator cuff was then mobilized and was easily brought back to the greater tuberosity. The soft tissue on the undersurface of the acromion was debrided with a motorized shaver and electrocautery clearly defining the anterior medial and lateral borders as well as the distal clavicle. An anterior inferior acromioplasty was performed with a motorized jian starting anterolateral, then extending this posteriorly, then extending this medially. I converted to a flat acromion and this was verified in the posterior and lateral viewing portals. The greater tuberosity was lightly decorticating with a shaver down to a bleeding bony surface. An accessory superior lateral portal was made just off the lateral edge of the acromion for anchor placement. 2 anchors were then placed just off the articular surface with the appropriate starting awl. 4.75 mm anchors preloaded with #2 fiber tape were placed. Good purchase was obtained. These fiber tapes were then passed the rotator cuff with a scorpion suture passer. A lateral row was created crisscrossing these tapes. 5.5 mm swivel lock anchors x 2 were placed laterally. Good purchase was obtained. Final arthroscopic view showed adequate compression at the footprint. The arthroscope was then removed. The portals were closed with simple 3-0 nylon sutures. A sterile dressing was applied in addition to a sling. The patient was then awoken from general anesthesia and transferred to recovery room in good condition. Blood loss was estimated at 10 mL. No complications were incurred. Sponge and needle counts were correct in the case. Marck YOUNG assisted and the major components of the case to include arm positioning, anchor placement, and rotator cuff repair.
[2021-08-24 09:27] VITALS: TEMP 97.8
--- NOTE | 2021-08-24 10:10 | P.ANPRN ---
Procedure Note - Anesthesia - Nerve Block Performed Left Interscalene Single Time Out Performed: Yes (700) Date of Procedure: 08/24/21 Procedure Start Time: 07:01 Procedure Stop Time: 07:06 Location of Patient: PreOp Indication: Acute Post-Operative Pain, Requested by Surgeon Specifically requested for management of pain by DrVerito: Benedicto Foley Sedation Type: Sedate with meaningful contact maintained Preparation: Sterile Prep Position: Supine Catheter: None Needle Types: Pajunk Needle Gauge: 21 Ultrasound used to visualize needle placement: Yes Ultrasound used to observe medication spread: Yes Injectate: 0.5% Ropivacaine (see comment for volume) (30cc) Blood Aspirated: No Pain Paresthesia on Injection Noted: No Resistance on Injection: Normal Image Stored and Saved: Yes Events: Uneventful and Well Tolerated
[2021-08-24 10:16] VITALS: BP 165/87; PULSE 64; RESP 16
== END 2021-08-24 10:48 | disposition home or self-care (01) ==
LOC: OR 05:59
PROVIDERS: ATTEND Orthopaedic Surgery
DX: M75.102 Unspecified rotator cuff tear or rupture of left shoulder, not specified as traumatic (principal); S43.432A Superior glenoid labrum lesion of left shoulder, initial encounter
CPT/HCPCS: 64415; 76942; C1713 ×2; C1894; J2250; J1100; J0690; J2405; J0171; J2001; J3010 ×2; J2795; J0330; J2704